=== PATIENT | female | born 1980 | race Caucasian/White ===

== ENCOUNTER → 2020-06-06 13:52 | Outpatient (BNVA) | payer OTHER, SELFPAY | PROVIDERS: Family Provider Family Medicine; PCP Nurse Practitioner Family; Visit Provider Nurse Practitioner Family | DX: I10 Essential (primary) hypertension (principal); Z90.49 Acquired absence of other specified parts of digestive tract | CPT/HCPCS: 80053; 80061; 84443; 85025 ==